=== PATIENT | male | born 1960 | race Caucasian/White ===

== ENCOUNTER 2020-06-13 10:11 | Outpatient (CLI) | payer BC ==
--- NOTE | 2020-06-13 10:55 | RAD ---
LUMBAR SPINE 2 VIEWS: Date; 06/13/2020 INDICATION: History of low back pain. COMPARISON: None. FINDINGS: There are five lumbar-type vertebra. There is moderate multilevel disc degenerative disease. Vertebra l body heights are preserved. No acute fracture is evident. Spinal alignment is within normal limits. There is mild degenerative change of both SI joints. IMPRESSION: 1. Moderate disc degenerative disease of the lumbar spine. 2. No acute fracture or subluxation is evident. 3. Mild SI joint osteoarthrosis. POS: [facility]
--- NOTE | 2020-06-13 10:59 | RAD ---
AP VIEW OF THE PELVIS: INDICATION: Dorsalgia with history of fall in April of 2020. COMPARISON: None. FINDINGS: The SI joints and symphysis pubis appear symmetric but with mild degenerative change. There is mild osteoarthrosis of both hips. No displaced fracture is evident. Bowel gas pattern is unobstructed. IMPRESSION: 1. No acute osseous abnormality. 2. Mild bilateral hip osteoarthrosis. 3. 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 POS: [facility]
== END 2020-06-13 10:12 | disposition home or self-care (01) ==
LOC: BICRAD 10:11
PROVIDERS: ATTEND Family Medicine
DX: M54.5 Low back pain (principal); M53.3 Sacrococcygeal disorders, not elsewhere classified; M16.0 Bilateral primary osteoarthritis of hip; M46.1 Sacroiliitis, not elsewhere classified; M51.36 Other intervertebral disc degeneration, lumbar region
CPT/HCPCS: 72100; 72170

== ENCOUNTER 2024-01-16 14:59 | Outpatient (CLI) | payer BC | END 2024-01-16 15:00 | disposition home or self-care (01) | LOC: SCSRAD 14:59 | PROVIDERS: ATTEND Family Medicine | DX: M54.2 Cervicalgia (principal); M54.6 Pain in thoracic spine; M54.50 Low back pain, unspecified; M47.812 Spondylosis without myelopathy or radiculopathy, cervical region; M47.814 Spondylosis without myelopathy or radiculopathy, thoracic region; M47.816 Spondylosis without myelopathy or radiculopathy, lumbar region | CPT/HCPCS: 72040; 72072; 72100 ==